=== PATIENT | male | born 1940 | race Caucasian/White ===

== ENCOUNTER 2017-07-19 06:48 | Day surgery (SDC) ==
[2016-08-11 14:30] VITALS: BMI 23.0
[2017-07-19] MEDS ORDERED: LIDOCAINE 1% 20 ML MDV ID ONE (07:15)
[2017-07-19] MEDS ORDERED: VERSED ONE (08:49)
[2017-07-19] MEDS ORDERED: DIPRIVAN 20 ML VIAL IVP ONE (08:49)
[2017-07-19 10:02] VITALS: BP 122/63; TEMP 98.2
--- NOTE | 2017-07-20 09:32 | OP ---
INDICATIONS FOR PROCEDURE: 77-year-old gentleman presents for colonoscopy exam. 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 He is now asymptomatic. He will only take Sulfasalazine tablet once a day, occasionally less than that he tells me. MEDICATIONS: SEE ANESTHESIA NOTES. PROCEDURE: COLONOSCOPY, BIOPSY. REPORT: The risks, benefits, alternatives and limitations were discussed in detail with the patient. Informed consent was obtained. After adequate sedation was achieved, a digital rectal exam revealed good tone, no masses. The colonoscope was introduced into the rectum and advanced under direct visual guidance to the cecum. The cecum was identified by the appendiceal orifice and IC valve. I then slowly withdrew the scope in a circumferential manner examining the mucosa quite carefully. I looked on the proximal and distal side of folds and flexures as best as possible. I was able to retroflex the scope in the right colon and left colon to increase visualization. The mucosa was unremarkable except for in the watershed area. There appeared to be some scarring suggestive of prior ischemic colitis. There was scattered small mouth diverticula noted throughout the sigmoid colon. No other abnormalities noted including on retroflex view of the anal canal. Surveillance biopsies were obtained from the cecum, proximal transverse, distal transverse, descending colon area and the rectum. The prep was excellent. The withdrawal time was 10 minutes and 55 seconds. The patient tolerated the procedure well with stable vital signs and pulse oximetry throughout. IMPRESSION: 1. DIVERTICULOSIS RECOMMENDATIONS: 1. High fiber diet. 2. Office visit as needed. 3. I will see him in the office in one year for a checkup as well. 4. Await surveillance biopsies. 5. Consider surveillance colonoscopy examination again in 5 years, sooner if there are any signs or symptoms to indicate otherwise. CC: DR[facility]KS [facility]arcel[facility]
== END 2017-07-19 10:15 | disposition home or self-care (01) ==
LOC: SURG 06:48
PROVIDERS: ATTEND Internal Medicine Gastroenterology
DX: Z09 Encounter for follow-up examination after completed treatment for conditions other than malignant neoplasm (principal); Z87.19 Personal history of other diseases of the digestive system; D12.7 Benign neoplasm of rectosigmoid junction; D12.0 Benign neoplasm of cecum; D12.4 Benign neoplasm of descending colon; D12.3 Benign neoplasm of transverse colon; K57.30 Diverticulosis of large intestine without perforation or abscess without bleeding